=== PATIENT | female | born 1960 | race Two or more races ===

== ENCOUNTER 2023-09-05 15:49 | Emergency (ER) | payer OTHER ==
[~2023-09-05] VITALS: Ht 162.6 cm; Wt 69.4 kg
[2023-09-05] MEDS ORDERED: KETOROLAC TROMETHAMINE 30 MG VIAL IM STA (20:01)
[2023-09-05] MEDS ORDERED: DICLOFENAC POTA50 MG PO (21:44)
== END 2023-09-05 22:37 | disposition home or self-care (01) ==
LOC: ER 15:49
DX: S92.302A Fracture of unspecified metatarsal bone(s), left foot, initial encounter for closed fracture (principal); X58.XXXA Exposure to other specified factors, initial encounter; Y93.89 Activity, other specified; Y92.89 Other specified places as the place of occurrence of the external cause
CPT/HCPCS: 29515; 73630; 96372; 99283; J1885